=== PATIENT | male | born 1990 | race Caucasian/White ===

== ENCOUNTER 2020-01-03 17:33 | Inpatient (IN) | payer OTHER ==
[~2020-01-03] VITALS: Ht 172.7 cm; Wt 81.7 kg
[2020-01-03 17:40] VITALS: BP 142/80
[2020-01-03] MEDS ORDERED: PROAIR HFA8.5 GM INH (17:44)
[2020-01-03 18:31] LABS: INFLUENZA A ANTIGEN Negative (Negative); INFLUENZA B ANTIGEN Negative (Negative)
[2020-01-03 18:43] LABS: HEMATOCRIT 38.4 % (42.0-52.0); HEMOGLOBIN 13.2 gm/dL (14.0-18.0); MCH 31.1 pg (26.0-34.0); MCHC 34.5 g/dL (28.0-37.0); MPV 8.4 fl. (7.2-11.1); NUCLEATED RBCS 0 /100WBC; PLATELET COUNT* 277 thou/uL (150-400); RBC 4.26 mil/uL (4.50-6.00); RDW-CV 13.1 % (10.5-14.5); WBC 35.6 thou/uL (4.0-11.0)
[2020-01-03 18:51] LABS: CALCIUM 9.2 mg/dL (8.5-10.1); CREATININE 1.1 mg/dL (0.6-1.3)
[2020-01-03 18:55] LABS: ALBUMIN 2.5 g/dL (3.4-5.0); TOTAL BILIRUBIN 0.5 mg/dL (<0.1-1.0); TOTAL PROTEIN 7.6 g/dL (6.4-8.2)
[2020-01-03 19:10] LABS: ABSOLUTE LYMPHOCYTES 2.8 thou/uL (0.8-5.3); ABSOLUTE MONOCYTES 2.8 thou/uL (0.0-1.2); ABSOLUTE NEUTROPHILS 29.9 thou/uL (1.6-8.1)
[2020-01-03 19:11] LABS: PLATELET ESTIMATE ADEQUATE
[2020-01-03 20:57] LABS: URINE BILIRUBIN NEGATIVE (Negative); URINE BLOOD 1+ (Negative); URINE CLARITY CLEAR; URINE COLOR YELLOW; URINE GLUCOSE-RANDOM NEGATIVE (Negative); URINE KETONES NEGATIVE (Negative); URINE LEUKOCYTES-REFLEX NEGATIVE (Negative); URINE NITRITE-REFLEX NEGATIVE (Negative); URINE PROTEIN 1+ (Negative); URINE SPECIFIC GRAVITY <= 1.005 (1.005-1.030)
[2020-01-03 21:07] LABS: MUCUS None Seen strn/LPF (None Seen); SQUAMOUS NONE SEEN /LPF (0-3); URINE WBC-REFLEX 0-5 Rare /HPF (0-5)
[2020-01-03 21:08] LABS: BACTERIA-REFLEX None Seen /HPF (None Seen); CASTS None Seen /LPF (None Seen); CRYSTALS None Seen /LPF (None Seen); URINE RBC 0-2 Rare /HPF (0-2)
[2020-01-03 21:14] LABS: AMP/METHAMP POSITIVE (Negative); BARBITURATES Negative (Negative); BENZODIAZEPINES Negative (Negative); COCAINE Negative (Negative); METHADONE Negative (Negative); OPIATES POSITIVE (Negative); PCP Negative (Negative); THC POSITIVE (Negative)
[2020-01-04 01:23] VITALS: BP 112/58
[2020-01-04 06:33] VITALS: BP 121/76
[2020-01-04 08:00] VITALS: BP 118/68
[2020-01-04 08:32] LABS: HEMATOCRIT 36.1 % (42.0-52.0); HEMOGLOBIN 12.3 gm/dL (14.0-18.0); MCH 30.6 pg (26.0-34.0); MCV 90.1 fL (80.0-100.0); MPV 8.9 fl. (7.2-11.1); RBC 4.01 mil/uL (4.50-6.00); RDW-CV 12.9 % (10.5-14.5); WBC 32.9 thou/uL (4.0-11.0)
[2020-01-04 08:35] LABS: CALCIUM 8.6 mg/dL (8.5-10.1); POTASSIUM 4.1 mmol/L (3.5-5.1)
--- NOTE | 2020-01-04 10:17 | EKG ---
[place] [address] ELECTROCARDIOGRAM REPORT Name: CHARLEE HULL Room: [facility]18 ADM IN [facility]#: [id number] Admission: 01/03/20 Attend Phys: Randall Leyva, Discharge: Date of : 89 Date of Service: 01/03/20 1834 Report #: [id number] THIS REPORT FOR: //name// [facility] ED Test Date: 2020-01-03 Test Time: 18:34:27 Pat Name: CHARLEE HULL Department: Room: [facility] Gender: M [employer]cer: SHANNA : 1990 Requested By: Anne-Marie Jacome Order Number: [id number] MD: Rene Nelson Measurements Intervals [place] Rate: 130 P: 79 TN: 116 QRS: 57 QRSD: 82 T: 65 QT: 271 QTc: 399 Interpretive Statements Sinus tachycardia Baseline wander in lead(s) V3,V4 No previous ECG available for comparison Electronically Signed On 01-04-2020 10:17:37 CDT by Rene Nelson [email or web address] <ELECTRONICALLY SIGNED> By: Rene Nelson MD, [facility] 01/04/20 1017 1834 1834 Rene Nelson MD, [facility] /EPI
== END 2020-01-04 11:33 | disposition left against medical advice (07) | DRG 871 ==
LOC: M.ERS 17:33 → M.TBA-ER 18:56
PROVIDERS: Internal Medicine; Physician Assistant; ADMIT Internal Medicine; ATTEND Internal Medicine
DX: A41.9 Sepsis, unspecified organism (principal); J18.9 Pneumonia, unspecified organism; J45.909 Unspecified asthma, uncomplicated; F17.210 Nicotine dependence, cigarettes, uncomplicated; Z53.29 Procedure and treatment not carried out because of patient's decision for other reasons; Z20.828 Contact with and (suspected) exposure to other viral communicable diseases; Z79.899 Other long term (current) drug therapy